=== PATIENT | male | born 1950 | race Asian ===

== ENCOUNTER 2020-01-04 17:07 | Emergency (ER) | payer MEDICARE, OTHER ==
[2020-01-04] MEDS ORDERED: DIPHtheria,PERTUSSIS(ACELL),TETANUS VACCINE/PF 0.5 ML VIAL IM ONE (18:37)
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
[2020-01-04 20:27] VITALS: BP 132/74
== END 2020-01-04 20:26 | disposition home or self-care (01) ==
LOC: ED 17:07
DX: S00.01XA Abrasion of scalp, initial encounter (principal); S80.811A Abrasion, right lower leg, initial encounter; M79.642 Pain in left hand; M25.561 Pain in right knee; I10 Essential (primary) hypertension; M13.88 Other specified arthritis, other site; Z86.718 Personal history of other venous thrombosis and embolism; Z79.01 Long term (current) use of anticoagulants; Z79.899 Other long term (current) drug therapy; V89.2XXA Person injured in unspecified motor-vehicle accident, traffic, initial encounter; Y93.89 Activity, other specified; Y92.89 Other specified places as the place of occurrence of the external cause; Y99.8 Other external cause status
CPT/HCPCS: 70450; 90471; 90715